=== PATIENT | female | born 2005 | race Two or more races ===

== ENCOUNTER 2024-06-24 18:13 | Emergency (ER) | payer MEDICAID, OTHER ==
[~2024-06-24] VITALS: Ht 162.6 cm; Wt 93.1 kg
[2024-06-24 21:30] VITALS: BP 121/65; PULSE 105; RESP 19; TEMP 99.4; O2SAT 97
[2024-06-24] MEDS: ALBUTEROL SULF 2.5 MG/0.5ML(0.5%) NEB SOLN NEB ONE (21:52)
[2024-06-24] MEDS: IPRATROPIUM BROM 0.5 MG/2.5ML INH SOL NEB ONE (21:52)
[2024-06-24] MEDS: DexAMETHasone SOD PHOS 10MG/1ML VIAL INJ IM ONE (21:54)
--- NOTE | 2024-06-24 21:55 | DVH ---
EXAM: XY CHEST TWO VIEWS ROUTINE TECHNIQUE: Two radiographic views of the chest CLINICAL HISTORY: COUGH/FEVERS COMPARISON: None Findings/Impression: Frontal and lateral chest radiographs demonstrate no acute osseous or superficial soft tissue abnorma lities. The trachea is midline. The cardiac silhouette and mediastinum are within normal limits. No pneumothorax, pleural effusions, or consolidations.
--- NOTE | 2024-06-24 22:07 | ED.PDOC ---
SOB-HPI HPI Comments 18-year-old female presents to the ED with chief complaint of sob, cough, headache. Symptoms reportedly began last night after possible exposure to mold at work. Patient denies difficulty breathing, chest pain, nausea, vomiting or diarrhea. Reports no recent travel or ill contacts. 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 History Family History Family History: Reviewed,noncontributory to illness Social History Smoker: Non-Smoker Alcohol: Denies ETOH Use Drugs: Denies Drug Use Constitutional: denies: chills, diaphoresis, fatigue, fever, malaise, sweats, weakness, others EENTM: denies: blurred vision, double vision, ear bleeding, ear discharge, ear drainage, ear pain, ear ringing, eye pain, eye redness, hearing loss, mouth pain, mouth swelling, nasal discharge, nose bleeding, nose congestion, nose pain, photophobia, tearing, throat pain, throat swelling, voice changes, others Respiratory: reports: cough, SOB at rest; denies: hemoptysis, orthopnea, shortness of breath, SOB with excertion, stridor, wheezing, others Cardiovascular: denies: chest pain, dizzy spells, diaphoresis, Dyspnea on exertion, edema, irregular heart beat, left arm pain, lightheadedness, palp itations, PND, syncope, others Gastrointestinal: denies: abdomen distended, abdominal pain, blood streaked bowels, constipated, diarrhea, dysphagia, difficulty swallowing, hematemesis, melena, nausea, poor appetite, poor fluid intake, rectal bleeding, rectal pain, vomiting, others Genitourinary: denies: abnormal vagina bleeding, burning, dyspareunia, dysuria, flank pain, frequency, hematuria, incontinence, pain, , vagina discharge, urgency, others Neurological: reports: headache; denies: dizziness, fainting, left sided numbness, left sided weakness, numbness, paresthesia, pre-existing deficit, right sided numbness, right sided weakness, seizure, speech problems, tingling, tremors, weakness, others Musculoskeletal: denies: back pain, gout, joint pain, joint swelling, muscle pain, muscle stiffness, neck pain, others Integumetry: denies: bruises, change in color, change in hair/nails, dryness, laceration, lesions, lumps, rash, wounds, others Allergic/Immunocompromised: denies: Difficulty Healing, Frequent Infections, Hives, Itching, others Hematologic/Lymphatic: denies: anemia, blood clots, easy bleeding, easy bruising, swollen glands, others Endocrine: denies: excessive hunger, excessive sweating, excessive thirst, excessive urination, flushing, intolerance to cold, intolerance to heat, unexplained weight gain, unexplained weight loss, others Psychiatric: denies: anxiety, bipolar disorder, depression, hopeless, panic disorder, schizophrenia, sleepless, suicidal, others Physical Exam General Appearance: No Apparent Distress, Normal HEENT: Normal ENT Inspection, Pharynx Normal, TMs Normal Neck: Full Range of Motion, Non-Tender Respiratory: Chest Non-Tender, No Accessory Muscle Use, No Respiratory Distress, Wheezing (Expiratory and inspiratory) Cardiovascular: No Murmur, Normal Peripheral Pulses, Regular Rate/Rhythm Breast Exam: Deferred Gastrointestinal: Non Tender, Soft Genitalia: Deferred Pelvic: Deferred Rectal: Deferred Extremities: No calf tenderness, Normal capillary refill, Normal inspection, Normal range of motion, Non-tender, No pedal edema Musculoskeletal : Apperance: Normal Neurologic: Alert, marketing and outreach coordinator II-XII nml as Tested, No Motor Deficits, Normal Affect, Normal Mood, No Sensory Deficits Cerebellar Function: Normal Reflexes: Normal Skin: Dry, Normal Color, Warm Lymphatic: No Adenopathy Was a procedure done? Was a procedure done?: No Differential Dx Differential Diagnosis: Asthma, Bronchitis, Pneumonia, Sinusitis, Allergic Rhinitis X-Ray, Labs, Meds, VS Vital Signs Date Time Temp Pulse Resp B/P (MAP) Pulse Ox O2 Delivery O2 Flow Rate FiO2 06/24/24 21:30 105 19 97 Room Air 06/24/24 21:30 99.4 105 19 121/65 (83) 97 99.4 06/24/24 18:46 12 95 Room Air 06/24/24 18:32 99.4 119 18 91/70 (77) 98 Lab Test 06/24/24 21:55 Range/Units Influenza Type A Antigen Negative Negative Influenza Type B Antigen Negative Negative SARS-CoV-2 Antigen (Rapid) Negative NEGATIVE Current Medications Medications (Trade) Dose Ordered Sig/Renee Route Start Time Stop Time Status Last Admin Albuterol (Ventolin Medneb) 2.5 mg ONCE ONCE NEB 06/24/24 21:30 06/24/24 21:31 DC 06/24/24 21:52 Ipratropium [place] (Atrovent Medneb) 0.5 mg ONCE ONCE NEB 06/24/24 21:30 06/24/24 21:31 DC 06/24/24 21:52 Dexamethasone Sodium Phosphate (Decadron Injection) 10 mg ONCE ONCE IM 06/24/24 21:30 06/24/24 21:31 DC 06/24/24 21:54 X-Ray, Labs, Meds, VS Comment Patient given duo neb with good results lung sounds clear and equal bilateral. Chest x-ray shows no acute cardiopulmonary findings. Negative flu and COVID swabs. Likely a common cold. Advised to rest increase p.o. fluids with electrolytes [id number] Tylenol or Motrin as needed for pain and fever. Follow up your PCP as necessary for continued symptoms. Return precautions given patient indicates understanding agrees with discharge plan of care. Time of 1ST Reevaluation: 22:47 Reevaluation 1ST: Improved Patient Education/Counseling: Diagnosis, Treatment, Prognosis, Need For Follow Up Family Education/Counseling: No Family Present Departure 1 Departure Time of Disposition: 22:47 Impression: Primary Impression: Nasopharyngitis acute Disposition: 01 HOME / SELF CARE / HOMELESS Condition: Stable Discharged With: Self Critical Care Note Critical Care Time?: No Stability Stability form required: No Heart Score Heart Score: Heart Score Response (Comments) Value History N/A 0 EKG N/A 0 Age <45 0 Risk Factors N/A 0 Troponin N/A 0 Total 0 NALINI THOMAS Jun 24, 2024 22:07
[2024-06-24 22:34] LABS: COVID19 ANTIGEN SOFIA FIA NEGATIVE (NEGATIVE); Rapid Influenza A Negative (Negative); Rapid Influenza B Negative (Negative)
== END 2024-06-24 23:16 | disposition home or self-care (01) ==
LOC: ER 18:13
DX: J00 Acute nasopharyngitis [common cold] (principal); Z20.822 Contact with and (suspected) exposure to COVID-19
CPT/HCPCS: 36415; 71046; 87426; 87804; 94640; 96372; 99284; J1100

== ENCOUNTER 2024-06-26 16:57 | Inpatient (IN) | payer MEDICAID, OTHER ==
[~2024-06-26] VITALS: Ht 162.6 cm; Wt 97.0 kg
--- NOTE | 2024-06-26 17:10 | ED.PDOC ---
Eye-HPI HPI Comments 18 y/o F presents to the ED for CC of flu-like symptoms. Patient relays, that she has been experiencing flu-like symptoms with associated symptoms of shortness of breath x3days. Patient states, that she went to urgent care for a routine check up following her visit to [facility] ED on (06/24/24);patient sent from urgent care for a further evaluation. Patient comments that symptoms have worsened with no alleviation. Patient denies any past medical history or social history. Patient denies body-aches, loss of taste or smell, headache, or N/V/D. No other symptoms or modifying factors at this time. Time Seen by MD: 17:00 Reviewed Notes: Nurses Notes, Medications, Allergies Information Source: Patient Mode of Arrival: Ambulatory Timing: Days Duration: Since onset Prehospital treatment: None Lids: Normal Conjunctiva: Normal Cornea: Normal Pupils: Normal EOM: Normal Slit lamp exam: Normal Anterior chamber: Normal Mouth: Normal ENT Ear Exam: Normal Nose: Normal Sinuses: Normal Oropharynx: Normal Onset: Spontaneous Throat Exposed to: None History of: None Last Tetanus: Unknown Modifying factors: Nothing Associated signs and symptoms: None Past Medical History PAST MEDICAL HISTORY: Denies Surgical History: Denies all surgeries 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 History Family History Family History: Reviewed,noncontributory to illness Social History Smoker: Non-Smoker Alcohol: Denies ETOH Use Drugs: Denies Drug Use Constitutional: reports: chills, fever; denies: diaphoresis, fatigue, malaise, sweats, weakness, others EENTM: denies: blurred vision, double vision, ear bleeding, ear discharge, ear drainage, ear pain, ear ringing, eye pain, eye redness, hearing loss, mouth pain, mouth swelling, nasal discharge, nose bleeding, nose congestion, nose pain, photophobia, tearing, throat pain, throat swelling, voice changes, others Respiratory: reports: cough, shortness of breath; denies: hemoptysis, orthopnea, SOB at rest, SOB with excertion, stridor, wheezing, others Cardiovascular: denies: chest pain, dizzy spells, diaphoresis, Dyspnea on exertion, edema, irregular heart beat, left arm pain, lightheadedness, palpita tions, PND, syncope, others Gastrointestinal: denies: abdomen distended, abdominal pain, blood streaked katherine wels, constipated, diarrhea, dysphagia, difficulty swallowing, hematemesis, melena, nausea, poor appetite, poor fluid intake, rectal bleeding, rectal pain, vomiting, others Genitourinary: denies: abnormal vagina bleeding, burning, dyspareunia, dysuria, flank pain, frequency, hematuria, incontinence, pain, , vagina discharge, urgency, others Neurological: denies: dizziness, fainting, headache, left sided numbness, left sided weakness, numbness, paresthesia, pre-existing deficit, right sided numbness, right sided weakness, seizure, speech problems, tingling, tremors, weakness, others Musculoskeletal: denies: back pain, gout, joint pain, joint swelling, muscle pain, muscle stiffness, neck pain, others Integumetry: denies: bruises, change in color, change in hair/nails, dryness, laceration, lesions, lumps, rash, wounds, others Allergic/Immunocompromised: denies: Difficulty Healing, Frequent Infections, Hives, Itching, others Hematologic/Lymphatic: denies: anemia, blood clots, easy bleeding, easy bruis ing, swollen glands, others Endocrine: denies: excessive hunger, excessive sweating, excessive thirst, exc essive urination, flushing, intolerance to cold, intolerance to heat, unexplained weight gain, unexplained weight loss, others Psychiatric: denies: anxiety, bipolar disorder, depression, hopeless, panic disorder, schizophrenia, sleepless, suicidal, others All Other Systems: Reviewed and Negative Physical Exam General Appearance: Moderate Distress HEENT: Normal ENT Inspection, Pharynx Normal, TMs Normal Neck: Full Range of Motion, Non-Tender, Normal, Normal Inspection Respiratory: Chest Non-Tender, Decreased Breath Sounds, No Accessory Muscle Use, Normal Breath Sounds, Respiratory Distress Cardiovascular: No Edema, No JVD, No Murmur, No Gallop, Tachycardia Breast Exam: Deferred Gastrointestinal: No Organomegaly, Non Tender, No Pulsatile Mass, Normal Bowel Sounds, Soft Genitalia: Deferred Pelvic: Deferred Rectal: Deferred Extremities: No calf tenderness, Normal capillary refill, Normal inspection, Normal range of motion, Non-tender, No pedal edema Musculoskeletal : Apperance: Normal Neurologic: Alert, casey saw operator II-XII nml as Tested, No Motor Deficits, Normal Affect, Normal Mood, No Sensory Deficits Cerebellar Function: Normal Reflexes: Normal Skin: Dry, Normal Color, Warm Lymphatic: No Adenopathy Was a procedure done? Was a procedure done?: No EENT DIFF Eye: N/A Sore Throat: Epiglottitis, Pharyngitis, Streptococcal, Viral Pharyngitis, URI X-Ray, Labs, Meds, VS Vital Signs Date Time Temp Pulse Resp B/P (MAP) Pulse Ox O2 Delivery O2 Flow Rate FiO2 06/26/24 18:15 98.4 06/26/24 17:31 20 98 Room Air* 0 21 06/26/24 17:31 101.9 06/26/24 17:23 20 98 Room Air* 0 21 06/26/24 17:12 101.9 136 20 124/86 (99) 98 Lab Test 06/26/24 19:10 06/26/24 17:01 Range/Units White Blood Count 9.3 4.4-10.8 10^3/uL Red Blood Count 5.03 4.0-5.20 10^6/uL Hemoglobin 13.4 12.2-16.2 g/dL Hematocrit 40.8 36.0-46.0 % Mean Corpuscular Volume 81.0 80.0-100.0 fL Mean Corpuscular Hemoglobin 26.7 L 28.0-32.0 pg Mean Corpuscular Hemoglobin Concent 33.0 32.0-36.0 g/dL Red Cell Distribution Width 14.4 H 11.8-14.3 % Platelet Count 296 140-450 10^3/uL Mean Platelet Volume 8.3 6.9-10.8 fL Neutrophils (%) (Auto) 76.1 37.0-80.0 % Lymphocytes (%) (Auto) 15.3 10.0-50.0 % Monocytes (%) (Auto) 8.1 0.0-12.0 % Eosinophils (%) (Auto) 0.2 0.0-7.0 % Basophils (%) (Auto) 0.3 0.0-2.0 % Neutrophils # (Auto) 7.1 1.6-8.6 10 ^3/uL Lymphocytes # (Auto) 1.4 0.4-5.4 10 ^3/uL Monocytes # (Auto) 0.7 0-1.3 10 ^3/uL Eosinophils # (Auto) 0 0-0.8 10 ^3/uL Basophils # (Auto) 0 0-0.2 10 ^3/uL Nucleated Red Blood Cells 0.0 % Sodium Level Pending Potassium Level Pending Chloride Level Pending Carbon Dioxide Level Pending Anion Gap Pending Blood Urea Nitrogen Pending Creatinine Pending Glomerular Filtration Rate Calc Pending BUN/Creatinine Ratio Pending Serum Glucose Pending Lactic Acid Level Pending Calcium Level Pending Influenza Type A Antigen Positive Negative Influenza Type B Antigen Negative Negative SARS-CoV-2 Antigen (Rapid) Negative NEGATIVE Current Medications Medications (Trade) Dose Ordered Sig/Renee Route Start Time Stop Time Status Last Admin Sodium Chloride 500 ml @ 500 mls/hr Q1H ONCE IV 06/26/24 17:15 06/26/24 18:14 DC 06/26/24 17:33 Acetaminophen (Tylenol Tablet) 1,000 mg ONCE ONCE PO 06/26/24 17:15 06/26/24 17:16 DC 06/26/24 17:31 CXR: FINDINGS: Lines and Tubes: None Lungs: No focal consolidation. Pleura: No effusion. No pneumothorax. Cardiomediastinal contours: Unremarkable Bones: No acute osseous abnormality. IMPRESSION: 1. No acute cardiopulmonary disease. 2. No significant change from 06/24/2024. ATED BY: ARCHIE KC Jr., DO DICTATED DATE/TIME: 06/26/241719 SIGNED BY: ARCHIE KC Jr., DO SIGNED DATE/TIME: 06/26/241719 CC: The patient is influenza a is positive The influenza B and COVID test are negative The CBC is within normal limits The chemistry panel is pending and will be follow up by the hospitalist The patient was being admitted at this time The patient did receive acetaminophen 1000 mg p.o. for the fever The patient was also received normal saline to address the tachycardia The patient was being admitted at this time Images Reviewed?: Images reviewed and evaluated by me Time of 1ST Reevaluation: 17:30 Reevaluation 1ST: Unchanged Patient Education/Counseling: Diagnosis, Treatment, Prognosis Family Education/Counseling: No Family Present Departure 1 Departure Time of Disposition: 19:50 Impression: Primary Impression: Influenza A Additional Impressions: Fever Qualified Codes: R50.9 - Fever, unspecified Acute respiratory distress Disposition: ADMITTED INPATIENT Admit to: Med Surg Condition: Fair Critical Care Note Critical Care Time?: No Stability Stability form required: No Heart Score Heart Score: Heart Score Response (Comments) Value History N/A 0 EKG N/A 0 Age N/A 0 Risk Factors N/A 0 Troponin N/A 0 Total 0 I personally scribed for BETH MARTINEZ MD ([email or web address]) on 06/26/24 at 17:10. Electronically submitted by Emily Hoyt ([email or web address]). I personally scribed for BETH MARTINEZ MD ([email or web address]) on 06/26/24 at 17:49. Electronically submitted by Emily Hoyt ([email or web address]). BETH MARTINEZ MD Jun 26, 2024 17:10
--- NOTE | 2024-06-26 17:23 | DVH ---
XY CHEST TWO VIEWS ROUTINE CLINICAL HISTORY: cough COMPARISON: XY CHEST TWO VIEWS ROUTINE on DOS: 06/24/24 TECHNIQUE: Frontal and lateral view of the chest was obtained FINDINGS: Lines and Tubes: None Lungs: No focal consolidation. Pleura: No effusion. No pneumothorax. Cardiomediastinal contours: Unremarkable Bones: No acute osseous abnormality. IMPRESSION: 1. No acute cardiopulmonary disease. 2. No significant change from 06/24/2024.
[2024-06-26 17:31] VITALS: RESP 20; O2SAT 98
[2024-06-26] MEDS: ACETAMINOPHEN 325 MG TAB PO ONE (17:31)
[2024-06-26] MEDS: SODIUM CHLORIDE 0.9% 500 ML IV ONE (17:33)
[2024-06-26 18:37] LABS: COVID19 ANTIGEN SOFIA FIA NEGATIVE (NEGATIVE); Rapid Influenza A Positive (Negative); Rapid Influenza B Negative (Negative)
[2024-06-26 19:34] LABS: Basophils # (auto) 0 10 ^3/uL (0-0.2); Basophils % (auto) 0.3 % (0.0-2.0); Eosinophils # (auto) 0 10 ^3/uL (0-0.8); Eosinophils % (auto) 0.2 % (0.0-7.0); Hematocrit 40.8 % (36.0-46.0); Hemoglobin 13.4 g/dL (12.2-16.2); Lymphocytes # (auto) 1.4 10 ^3/uL (0.4-5.4); Lymphocytes % (auto) 15.3 % (10.0-50.0); Mean Corpuscular Hemoglobin 26.7 pg (28.0-32.0); Monocytes # (auto) 0.7 10 ^3/uL (0-1.3); Monocytes % (auto) 8.1 % (0.0-12.0); Neutrophils # (auto) 7.1 10 ^3/uL (1.6-8.6); Neutrophils % (auto) 76.1 % (37.0-80.0); Platelet Count (auto) 296 10^3/uL (140-450); Red Blood Cells 5.03 10^6/uL (4.0-5.20); Red Cell Distribution Width 14.4 % (11.8-14.3); White Blood Cell 9.3 10^3/uL (4.4-10.8)
[2024-06-26 19:45] LABS: Chloride 106 mmol/L (98-107); Sodium 137 mmol/L (136-145)
[2024-06-26 19:46] LABS: Anion Gap 12 (5-15); Calcium 9.5 mg/dL (8.7-10.4)
[2024-06-26 19:51] LABS: BUN/Creatinine Ratio 8.4 (10.0-20.0); Glucose 82 mg/dL (74-106)
[2024-06-26 19:58] LABS: Blood Urea Nitrogen 7 mg/dL (9-23); Carbon Dioxide 19 mmol/L (20-31); Potassium 3.2 mmol/L (3.5-5.1)
[2024-06-26] MEDS: cefTRIAXone 1GM/50ML D5W 50 ML IV ONE (22:00)
[2024-06-26] MEDS: SODIUM CHLORIDE 0.9% 1,000 ML IV ONE (22:00)
[2024-06-26] MEDS ORDERED: ACETAMINOPHEN 325 MG TAB PO PRN (22:00)
[2024-06-26] MEDS: ALBUTEROL SULF 2.5 MG/0.5ML(0.5%) NEB SOLN ONE (22:17)
--- NOTE | 2024-06-26 22:17 | DVHHPRES ---
History of Present Illness Resident Creating Document: DIANE ALONZO RESIDENT History of Present Illness Patient is a 18-year-old female with no past medical history who came in due to sore throat, shaking chills, body aches and generalized weakness that has been ongoing since Tuesday06/24/2024. According to the patient, she came to the ER on 06/24/2024 and was sent home, but her symptoms progressively got worse where she could not get out of shower with loss of appetite, dyspnea and shortness of breath. Patient notes sick contacts her sister, denies any travel history, denies influenza shot. In the ER patient was noted to have a temperature of 101.9, pulse 136. On review of systems patient is complaining of fatigue, fever, chills, dry cough, dyspnea, shortness of breath, palpitations and dysuria. Patient tested positive for influenza A. Past Medical History Denies Past Surgical History Denies Smoke: No ALCOHOL: none Drugs: None Lives: with Family Review of Systems Constitutional: Yes: Fever, Chills, Weakness, Malaise; No: Sweats, Other Eyes: No: Pain, Vision change, Conjunctivae inflammation, Eyelid inflammation, Other, Redness ENT: Nose discharge, Nose congestion, Throat pain; No: Ear pain, Ear discharge, Nose pain, Mouth pain, Mouth swelling, Throat swelling, Other Respiratory: Cough, Dry, SOB with excertion, Wheezing; No: Shortness of breath, Hemoptysis, Pleuritic Pain, Sputum, Wheezing, Other Cardiovascular: Palpitations; No: Chest Pain, Orthopnea, Paroxysmal Noc. Dyspnea, Edema, Lt Headedness, Other Gastrointestinal: No: Nausea, Vomiting, Abdominal Pain, Diarrhea, Constipation, Melena, Hematochezia, Other Genitourinary: Dysuria; No Frequency, No Incontinence, No Hematuria, No Retention, No Other Musculoskeletal: No: other, neck pain, shoulder pain, arm pain, back pain, hand pain, leg pain, foot pain Skin: No: Rash, Lesions, Jaundice, Bruising, Other Neurological: No: Weakness, Numbness, Incoordination, Change in speech, Confusion, Seizures, Other Allergies: Coded Allergies: NO KNOWN ALLERGIES (Unverified , 06/26/24) Medications Current Medications Medications Dose Ordered Sig/Renee Route Start Time Stop Time Status Last Admin Dose Admin Acetaminophen 650 mg Q6HP PRN PO 06/26/24 22:00 UNV Exam Vital Signs Vital Signs Date Time Temp Pulse Resp B/P (MAP) Pulse Ox O2 Delivery O2 Flow Rate FiO2 06/26/24 18:15 98.4 06/26/24 17:31 20 98 Room Air* 0 21 06/26/24 17:12 136 124/86 (99) General Appearance: Alert, Oriented X3, Cooperative, mild distress HEENT: Atraumatic, PERRLA, EOMI Respiratory: Other (Scattered bilateral wheezes) Cardiovascular: Regular rate, Normal S1, Normal S2, No murmurs Abdominal: Normal bowel sounds, Soft, Other (Suprapubic tenderness to palpation) Extremities: No clubbing, No cyanosis, No edema, Normal pulses, No tenderness/swelling Skin: No rashes, No breakdown, No significant lesion Neuro: Normal gait, Normal speech, Strength at 5/5 X4 ext, Normal tone, Sensation intact Psych/Mental Status: Mental status NL, Mood NL Labs/Xrays Labs Test 06/26/24 19:10 06/26/24 17:01 Range/Units White Blood Count 9.3 4.4-10.8 10^3/uL Red Blood Count 5.03 4.0-5.20 10^6/uL Hemoglobin 13.4 12.2-16.2 g/dL Hematocrit 40.8 36.0-46.0 % Mean Corpuscular Volume 81.0 80.0-100.0 fL Mean Corpuscular Hemoglobin 26.7 L 28.0-32.0 pg Mean Corpuscular Hemoglobin Concent 33.0 32.0-36.0 g/dL Red Cell Distribution Width 14.4 H 11.8-14.3 % Platelet Count 296 140-450 10^3/uL Mean Platelet Volume 8.3 6.9-10.8 fL Neutrophils (%) (Auto) 76.1 37.0-80.0 % Lymphocytes (%) (Auto) 15.3 10.0-50.0 % Monocytes (%) (Auto) 8.1 0.0-12.0 % Eosinophils (%) (Auto) 0.2 0.0-7.0 % Basophils (%) (Auto) 0.3 0.0-2.0 % Neutrophils # (Auto) 7.1 1.6-8.6 10 ^3/uL Lymphocytes # (Auto) 1.4 0.4-5.4 10 ^3/uL Monocytes # (Auto) 0.7 0-1.3 10 ^3/uL Eosinophils # (Auto) 0 0-0.8 10 ^3/uL Basophils # (Auto) 0 0-0.2 10 ^3/uL Nucleated Red Blood Cells 0.0 % Sodium Level 137 136-145 mmol/L Potassium Level 3.2 L 3.5-5.1 mmol/L Chloride Level 106 98-107 mmol/L Carbon Dioxide Level 19 L 20-31 mmol/L Anion Gap 12 5-15 Blood Urea Nitrogen 7 L 9-23 mg/dL Creatinine 0.83 0.550-1.02 mg/dL Glomerular Filtration Rate Calc 103 >90 mL/min BUN/Creatinine Ratio 8.4 L 10.0-20.0 Serum Glucose 82 74-106 mg/dL Lactic Acid Level 1.5 0.4-2.0 mmol/L Calcium Level 9.5 8.7-10.4 mg/dL Influenza Type A Antigen Positive Negative Influenza Type B Antigen Negative Negative SARS-CoV-2 Antigen (Rapid) Negative NEGATIVE Assessment/Plan Assessment/Plan Influenza A positive with possible superimposed bacterial infection Probable sepsis due to above - CXR: No acute cardiopulmonary disease. No significant change from 06/24/2024. - IV NS 1L bolus - IV ceftriaxone, azithromycin po 500mg - Acetaminphen 625mg as needed for fever - ipratropium and albuterol med nebs - ordered respiratory cultures, MRSA screen Acute complicated UTI - IV ceftriaxone Hypokalemia - repleted Goals of care: Full code, discussed for >16 minutes on 06/26/2024 Plan discussed with patient Plan discussed with Dr. Dubois Plan discussed with: Patient, Other (Mother, RN) My Orders Orders - DIANE ALONZO RESIDENT Procedure Category Date Status Time Admit ADMIT 06/26/24 Transmitted 21:54 Code Status CODE 06/26/24 Transmitted 21:54 Vital Signs CHRISTIAN 06/26/24 In Process 21:54 Regular Diet DIET 06/27/24 Transmitted Breakfast Acetaminophen Tablet PHA 06/26/24 Transmitted (Tylenol Tablet) 22:00 Notify Of Changes CHRISTIAN 06/26/24 In Process From Base 21:54 Advance Directive CHRISTIAN 06/26/24 In Process 21:54 Urinalysis LAB 06/26/24 Transmitted 21:54 Patient Condition ORDERS 06/26/24 Transmitted 21:54 Allergies CHRISTIAN 06/26/24 In Process 21:54 Drug Screen LAB 06/26/24 Transmitted 21:54 Notify Of Changes CHRISTIAN 06/26/24 In Process From Base 21:54 Lipase LAB 06/26/24 Transmitted 21:54 Beta Hcg, Quantitative LAB 06/26/24 Transmitted 21:54 Chlamydia/Gc LAB 06/26/24 Transmitted Amplification 21:54 Mrsa Screen ALEJANDRO 06/26/24 Transmitted 21:54 Respiratory Culture ALEJANDRO 06/26/24 Transmitted W/ Gs 21:54 Ipratropium Medneb PHA 06/26/24 Transmitted (Atrovent Medneb) 22:00 Albuterol Medneb PHA 06/26/24 Transmitted (Ventolin Medneb) 22:00 Potassium Effervesent PHA 06/26/24 Transmitted Tab (Klor-Con/Ef) 22:00 NS PHA 06/26/24 Transmitted 22:00 Ceftriaxone Ivpb PHA 06/26/24 Transmitted Rocephin 22:00 Azithromycin Tablet PHA 06/26/24 Transmitted (Zithromax Tablet) 22:00 Azithromycin Tablet PHA 06/27/24 Transmitted (Zithromax Tablet) 10:00 Date of Service: Jun 26, 2024 Billing Provider: DEVONTE DUBOIS MD Common Visit Codes: [id number] INP/OBS CARE (HIGH) DIANE ALONZO RESIDENT Jun 26, 2024 22:17 DEVONTE DUBOIS MD Jun 27, 2024 18:13
[2024-06-26 23:00] VITALS: PULSE 94; RESP 20; O2SAT 94
[2024-06-26 23:08] VITALS: PULSE 98; RESP 20; O2SAT 90
[2024-06-26] MEDS: POTASSIUM EFFERVESENT TAB 25 MEQ PO ONE (23:21)
[2024-06-26] MEDS: AZITHROMYCIN 250 MG TAB PO ONE (23:21)
[2024-06-26] MEDS: IPRATROPIUM BROM 0.5 MG/2.5ML INH SOL NEB SCH (23:33)
[2024-06-26] MEDS: ALBUTEROL SULF 2.5 MG/0.5ML(0.5%) NEB SOLN NEB SCH (23:33)
[2024-06-26 23:41] VITALS: BP 124/86; PULSE 98; RESP 20; TEMP 101.9; O2SAT 94
[2024-06-27] VITALS (12 sets, daily range): BP systolic 115–124; BP diastolic 65–79; PULSE 75–111; RESP 14–20; TEMP 97.1–98.9; O2SAT 94–100
[2024-06-27 00:01] LABS: Urine Bacteria FEW /hpf (None Seen); Urine Blood 2+ /uL (Negative); Urine Clarity Clear (Clear); Urine Color Light-Yellow (Yellow); Urine Protein, UAD Negative (Negative); Urine Specific Gravity 1.009 (1.001-1.035); Urine Squamous Epithelial Cell FEW /hpf (<5); Urine Urobilinogen Normal (Negative); Urine WBC 5 /HPF (0-5)
[2024-06-27 00:14] LABS: Amphetamine Screen, Urine Neg (NEGATIVE); Barbiturate Scree,Urine Neg (NEGATIVE); Benzodiazephine Screen, Urine Neg (NEGATIVE); Cannabinoid Screen, Urine Neg (NEGATIVE); Cocaine Screen, Urine Neg (NEGATIVE); Opiate Scree,Urine Neg (NEGATIVE); Phencyclidine Screen, Urine Neg (NEGATIVE)
[2024-06-27 08:30] LABS: Chloride 106 mmol/L (98-107); Potassium 3.6 mmol/L (3.5-5.1); Sodium 139 mmol/L (136-145)
[2024-06-27 08:31] LABS: Anion Gap 8 (5-15); Carbon Dioxide 25 mmol/L (20-31)
[2024-06-27 08:32] LABS: Calcium 9.6 mg/dL (8.7-10.4)
[2024-06-27 08:36] LABS: Glucose 86 mg/dL (74-106)
[2024-06-27 08:38] LABS: Blood Urea Nitrogen 8 mg/dL (9-23)
[2024-06-27] MEDS ORDERED: OSELTAMIVIR 75 MG CAP PO SCH (10:00)
[2024-06-27] MEDS: OSELTAMIVIR 75 MG CAP PO SCH (10:08)
[2024-06-27] MEDS: cefTRIAXone 1GM/50ML D5W 50 ML IV SCH (10:08)
[2024-06-27] MEDS: AZITHROMYCIN 250 MG TAB PO SCH (10:08)
[2024-06-27] MEDS: LACTATED RINGER'S 1,000 ML IV SCH (12:50)
--- NOTE | 2024-06-27 14:55 | DVHPNRES ---
Progress Note Date Seen: Jun 27, 2024 Resident Creating Document: DANNY NARVAEZ RESIDENT Medical Necessity Reason Pt with a Central, PICC or Fol: No Subjective Review of Systems Patient is a 18-year-old female with no past medical history who came in due to sore throat, shaking chills, body aches and generalized weakness that has been ongoing since Tuesday06/24/2024. According to the patient, she came to the ER on 06/24/2024 and was sent home, but her symptoms progressively got worse with loss of appetite, dyspnea and shortness of breath that prompted this visit. Patient was seen and examined on the bedside. she is alert oriented x3. Complains of cold, chills, nasal congestion and generalized body ache. No other active complaints. Constitutional: Chills, Malaise No Fever,Sweats, Weakness, Other Eyes: No: Pain, Vision change, Conjunctivae inflammation, Eyelid inflammation, Other, Redness ENT: Nose congestion No: Ear pain, Ear discharge, Nose pain, Nose discharge, Mouth pain, Mouth swelling, Throat pain, Throat swelling, Other Respiratory: Shortness of breath, improving No: Cough, Dry,Wheezing, Hemoptysis, Pleuritic Pain, Sputum, Wheezing, Other Cardiovascular: No: Chest Pain, Palpitations, Orthopnea, Paroxysmal Noc. Dyspnea, Edema, Lt Headedness, Other Gastrointestinal: No: Nausea, Vomiting, Abdominal Pain, Diarrhea, Constipation, Melena, Hematochezia, Other Musculoskeletal: No: other, neck pain, shoulder pain, arm pain, back pain, hand pain, leg pain, foot pain Neurological:; No: Weakness, Numbness, Incoordination, Change in speech, Confusion, Seizures Objective vital signs Vital Sign Date Time Temp Pulse Resp B/P (MAP) Pulse Ox O2 Delivery O2 Flow Rate FiO2 06/27/24 13:44 111 16 99 06/27/24 13:34 Room Air* 0 21 06/27/24 13:00 121/74 (90) 06/27/24 09:46 99.8 99.8 Total Intake and Output 06/26/24 06/26/24 06/27/24 15:00 23:00 07:00 Intake Total 500 ml 1050 ml Balance 500 ml 1050 ml medications Current Medications Medications Dose Ordered Sig/Renee Route Start Time Stop Time Status Last Admin Dose Admin Acetaminophen 650 mg Q6HP PRN PO 06/26/24 22:00 Ipratropium Gamerco 0.5 mg Q8HR NEB 06/26/24 22:00 06/27/24 13:34 0.5 MG Albuterol 2.5 mg Q8HR NEB 06/26/24 22:00 06/27/24 13:34 2.5 MG Azithromycin 500 mg DAILY PO 06/27/24 10:00 06/27/24 10:08 500 MG Ceftriaxone Sodium 50 ml @ 100 mls/hr DAILY@09 IV 06/27/24 09:00 06/27/24 10:08 100 MLS/HR Oseltamivir Phosphate 75 mg Q12HR PO 06/27/24 10:00 07/02/24 09:59 06/27/24 10:08 75 MG Lactated Ringer's 1,000 ml @ 125 mls/hr Q8H IV 06/27/24 10:00 06/27/24 12:50 125 MLS/HR Examination Physical examination: General Appearance: Alert, Oriented X3, Cooperative, No acute distress HEENT: Atraumatic, PERRLA, EOMI, Mucous membrane moist/pink Respiratory: Clear to auscultation, Normal air movement Cardiovascular: Regular rate, Normal S1, Normal S2, No murmurs, no chest wall tenderness Abdominal: Normal bowel sounds, Soft, No tenderness, No hepatospenomegaly, No masses Extremities: No clubbing, No cyanosis, No edema, Normal pulses, No tenderness/swelling Skin: No rashes, No breakdown, No significant lesion Neuro: Normal gait, Normal speech, Strength at 5/5 X4 ext, Normal tone, Sensation intact, intact cranial nerves. Psych/Mental Status: Mental status NL, Mood NL laboratory and microbiology Laboratory Tests 06/27/24 05:40 06/26/24 19:10 Test 06/27/24 05:40 Range/Units Serum Glucose 86 74-106 mg/dL Labs and/or images reviewed: Labs reviewed by me, Image(s) reviewed by me Problem List/Assessment/Plan Problem List/Assessment/Plan Assessment and plan: # Influenza A positive with possible superimposed community acquired gram positive/gram negative/ Viral pneumonia # SIRS due to above # Ruled out sepsis - CXR: No acute cardiopulmonary disease. No significant change from 06/24/2024. - IV NS 1L bolus - IV ceftriaxone, azithromycin po 500mg - Acetaminphen 625mg as needed for fever - Tamiflu 75 mg b.i.d - ipratropium and albuterol med nebs # Possible acute cystitis - Ordered urine bacterial culture - IV ceftriaxone 1 gm daily # Possible acute pancreatitis - Lipase is mildly elevated - Full liquid diet - IV Ringer's lactate 125 mL/hour Goal of care discussed with the patient for more than 20 minutes full code Plan discussed with Dr. Alvarez Plan discussed with: Patient, Other My Orders My Orders Orders - DANNY NARVAEZ Procedure Category Date Status Time Lactated Ringer's PHA 06/27/24 In Process 10:00 Full Liq Diet DIET 06/27/24 Transmitted Lunch Date of Service: Jun 27, 2024 Billing Provider: VIVIANA SMALL MD Common Visit Codes: [id number] INP/OBS CARE(HIGH) DANNY NARVAEZ RESIDENT Jun 27, 2024 14:55 VIVIANA SMALL MD Jun 28, 2024 13:08
[2024-06-28] VITALS (7 sets, daily range): BP systolic 112–129; BP diastolic 62–78; PULSE 83–113; RESP 16–18; TEMP 97.5–98.7; O2SAT 94–98
[2024-06-28 06:18] LABS: Basophils # (auto) 0 10 ^3/uL (0-0.2); Basophils % (auto) 0.4 % (0.0-2.0); Eosinophils # (auto) 0 10 ^3/uL (0-0.8); Lymphocytes # (auto) 2.8 10 ^3/uL (0.4-5.4); Monocytes # (auto) 0.5 10 ^3/uL (0-1.3)
[2024-06-28 06:20] LABS: Eosinophils % (auto) 0.3 % (0.0-7.0); Hematocrit 43.8 % (36.0-46.0); Hemoglobin 14.2 g/dL (12.2-16.2); Lymphocytes % (auto) 51.8 % (10.0-50.0); Mean Corpuscular Hemoglobin 26.5 pg (28.0-32.0); Mean Corpuscular Hgb Conc. 32.5 g/dL (32.0-36.0); Mean Corpuscular Volume 81.6 fL (80.0-100.0); Monocytes % (auto) 9.8 % (0.0-12.0); Neutrophils # (auto) 2.1 10 ^3/uL (1.6-8.6); Neutrophils % (auto) 37.7 % (37.0-80.0); Nucleated Red Blood Cells % 0.3 %; Platelet Count (auto) 318 10^3/uL (140-450); Red Blood Cells 5.36 10^6/uL (4.0-5.20); Red Cell Distribution Width 14.6 % (11.8-14.3); White Blood Cell 5.5 10^3/uL (4.4-10.8)
[2024-06-28 06:36] LABS: Alanine Aminotransferase 29 U/L (7-40); Albumin 4.6 g/dL (3.2-4.8); Alkaline Phosphatase 83 U/L (46-116); Anion Gap 8 (5-15); Aspartate Aminotransferase 25 U/L (13-40); Calcium 9.8 mg/dL (8.7-10.4); Carbon Dioxide 23 mmol/L (20-31); Chloride 107 mmol/L (98-107); Glucose 84 mg/dL (74-106); Potassium 3.9 mmol/L (3.5-5.1); Sodium 138 mmol/L (136-145)
[2024-06-28 06:37] LABS: Bilirubin, Total 0.2 mg/dL (0.2-1.0); Blood Urea Nitrogen < 5 mg/dL (9-23); Total Protein 7.7 g/dL (5.7-8.2)
[2024-06-28 09:22] LABS: Hepatitis B Surface Antigen Negative (Negative); Hepatitis C Antibody Negative (Negative)
[2024-06-28] MEDS ORDERED: AZIT500T66 PO (10:08)
[2024-06-28] MEDS ORDERED: TAMIFLU PO (10:08)
--- NOTE | 2024-06-28 10:09 | DVHDSRES ---
Discharge Summary Date of Admission Resident Creating Document: DANNY NARVAEZ RESIDENT Jun 26, 2024 at 21:54 Date of Discharge: Jun 28, 2024 Admitting Diagnosis Influenza A positive with possible superimposed community acquired gram positive/gram negative/ Viral pneumonia Wounds: No wound was present Labs/Diagnostic Data: Laboratory Results Test 06/28/24 05:00 06/27/24 05:40 06/26/24 23:25 06/26/24 19:10 White Blood Count 5.5 10^3/uL (4.4-10.8) Red Blood Count 5.36 10^6/uL (4.0-5.20) Hemoglobin 14.2 g/dL (12.2-16.2) Hematocrit 43.8 % (36.0-46.0) Mean Corpuscular Volume 81.6 fL (80.0-100.0) Mean Corpuscular Hemoglobin 26.5 pg (28.0-32.0) Mean Corpuscular Hemoglobin Concent 32.5 g/dL (32.0-36.0) Red Cell Distribution Width 14.6 % (11.8-14.3) Platelet Count 318 10^3/uL (140-450) Mean Platelet Volume 8.1 fL (6.9-10.8) Neutrophils (%) (Auto) 37.7 % (37.0-80.0) Lymphocytes (%) (Auto) 51.8 % (10.0-50.0) Monocytes (%) (Auto) 9.8 % (0.0-12.0) Eosinophils (%) (Auto) 0.3 % (0.0-7.0) Basophils (%) (Auto) 0.4 % (0.0-2.0) Neutrophils # (Auto) 2.1 10 ^3/uL (1.6-8.6) Lymphocytes # (Auto) 2.8 10 ^3/uL (0.4-5.4) Monocytes # (Auto) 0.5 10 ^3/uL (0-1.3) Eosinophils # (Auto) 0 10 ^3/uL (0-0.8) Basophils # (Auto) 0 10 ^3/uL (0-0.2) Nucleated Red Blood Cells 0.3 % Sodium Level 138 mmol/L (136-145) Potassium Level 3.9 mmol/L (3.5-5.1) Chloride Level 107 mmol/L (98-107) Carbon Dioxide Level 23 mmol/L (20-31) Anion Gap 8 (5-15) Blood Urea Nitrogen < 5 mg/dL (9-23) Creatinine 0.71 mg/dL (0.550-1.02) Glomerular Filtration Rate Calc 125 mL/min (>90) BUN/Creatinine Ratio 7.0 (10.0-20.0) Serum Glucose 84 mg/dL (74-106) Calcium Level 9.8 mg/dL (8.7-10.4) Total Bilirubin 0.2 mg/dL (0.2-1.0) Aspartate Amino Transferase (AST) 25 U/L (13-40) Alanine Aminotransferase (ALT) 29 U/L (7-40) Alkaline Phosphatase 83 U/L (46-116) Total Protein 7.7 g/dL (5.7-8.2) Albumin 4.6 g/dL (3.2-4.8) Lipase 56 U/L (12-53) Thyroid Stimulating Hormone (TSH) 2.28 uIU/mL (0.55-4.78) Hepatitis B Surface Antigen Negative (Negative) Hepatitis C Antibody Negative (Negative) Urine Color Light-yellow (Yellow) Urine Clarity Clear (Clear) Urine pH 6.0 (5.0-9.0) Urine Specific [place] 1.009 (1.001-1.035) Urine Protein Negative (Negative) Urine Ketones 1+ (Negative) Urine Blood 2+ /uL (Negative) Urine Nitrite Negative (Negative) Urine Bilirubin Negative (Negative) Urine Urobilinogen Normal mg/dL (Negative) Urine Leukocyte Esterase 1+ /uL (Negative) Urine RBC 68 /hpf (0 - 4) Urine Microscopic WBC 5 /HPF (0-5) Urine Squamous Epithelial Cells Few /hpf (<5) Urine Bacteria Few /hpf (None Seen) Urine Glucose Normal mg/dL (Normal) Urine Opiates Screen Neg (NEGATIVE) Urine Fentanyl Screen Neg (NEGATIVE) Urine Barbiturates Screen Neg (NEGATIVE) Urine Phencyclidine Screen Neg (NEGATIVE) Urine Amphetamines Screen Neg (NEGATIVE) Urine Benzodiazepines Screen Neg (NEGATIVE) Urine Cocaine Screen Neg (NEGATIVE) Urine Cannabinoids Screen Neg (NEGATIVE) Lactic Acid Level 1.5 mmol/L (0.4-2.0) Beta HCG, Quantitative 0.3 mIU/mL (1.5-4.2) Test 06/26/24 17:01 Influenza Type A Antigen Positive (Negative) Influenza Type B Antigen Negative (Negative) SARS-CoV-2 Antigen (Rapid) Negative (NEGATIVE) Other Laboratory Tests 06/28/24 05:00 Brief Hx & Hospital Course: Patient is a 18-year-old female with no past medical history who came in due to sore throat, shaking chills, body aches and generalized weakness that has been ongoing since Tuesday06/24/2024. According to the patient, she came to the ER on 06/24/2024 and was sent home, but her symptoms progressively got worse with loss of appetite, dyspnea and shortness of breath that prompted this visit. Hospital course: Initially the patient was SIRS positive, elevated temperature and tachycardia and sepsis ruled out. Patient was treated for influenza A with possible superimposed community-acquired Gram-positive / Gram-negative /viral pneumonia with IV ceftriaxone 1 g daily , azithromycin 500 mg p.o. daily and Tamiflu 75 mg b.i.d. Lipase was mildly elevated and the patient was treated with full liquid diet, IV lactated ringer 125 mL/hours. Today morning patient mentioned improvement of symptoms in terms of breathing, nasal congestion and abdominal pain. Discharge plan was discussed with the patient and all questions were answered. Patient is being discharged to home. Discharge diagnosis: # Influenza A positive with possible superimposed community acquired gram positive/gram negative/ Viral pneumonia # SIRS due to above # Ruled out sepsis # Possible acute cystitis # Possible acute pancreatitis Discharge disposition: Home Medications : Azithromycin 500 mg daily for 3 days and Opal flu 75 mg b.i.d. f or 3 days. Follow up : [facility] clinic in 1 week PCP in 1 week Consults/Reason for consult No consultation was done Operations or Procedures XY CHEST TWO VIEWS ROUTINE CLINICAL HISTORY: cough COMPARISON: XY CHEST TWO VIEWS ROUTINE on DOS: 06/24/24 TECHNIQUE: Frontal and lateral view of the chest was obtained FINDINGS: Lines and Tubes: None Lungs: No focal consolidation. Pleura: No effusion. No pneumothorax. Cardiomediastinal contours: Unremarkable Bones: No acute osseous abnormality. IMPRESSION: 1. No acute cardiopulmonary disease. Condition at Discharge: Stable Final Diagnosis/Problems List # Influenza A positive with possible superimposed community acquired gram positive/gram negative/ Viral pneumonia # SIRS due to above # Ruled out sepsis # Possible acute cystitis # Possible acute pancreatitis Discharge Disposition: Home Discharge Instruct/Medications Diet: Regular Activity: No Restrictions, As Tolerated Follow Up/Referral: Follow up with [facility] clinic in 1 week Follow up with PCP in 1 week Medications: Azithromycin 500mg 1 tab daily for 3 days Tamiflu 75 mg 1 tab bid for 3 days Discharge Statement: "Patient was advised to return to the ER or call 911 if any headaches, dizziness, shortness of breath, chest pain, abdominal pain, bleeding, fevers, or worsening of medical condition. Patient was counseled about treatment plan, medications, possible side effects, patientverbalized understanding. All questions were answered to the best of my ability. This discharge took greater then 30 minutes in planning, reviewing documentation, counseling the patient, and discussing with other team members." ASSESSMENT ASSESSMENT Assessment # Influenza A positive with possible superimposed community acquired gram positive/gram negative/ Viral pneumonia # SIRS due to above # Ruled out sepsis # Possible acute cystitis # Possible acute pancreatitis Date of Service: Jun 28, 2024 Billing Provider: VIVIANA SMALL MD Common Visit Codes: 97002-ROM/OBS DISCH DAY >30min DANNY NARVAEZ RESIDENT Jun 28, 2024 10:09 VIVIANA SMALL MD Jul 03, 2024 09:46
[2024-06-28 21:06] LABS: Chlamydia Trachomatis, NAA Negative (Negative); Neisseria gonorrhoeae, NAA Negative (Negative)
== END 2024-06-28 12:08 | disposition home or self-care (01) | DRG 139 ==
LOC: ER 16:57 → OVERFLOW 21:54 → CENTRAL 06-27 14:08
PROVIDERS: ADMIT Student in an Organized Health Care Education/Training Program; ATTEND Student in an Organized Health Care Education/Training Program
DX: J10.08 Influenza due to other identified influenza virus with other specified pneumonia (principal); K85.90 Acute pancreatitis without necrosis or infection, unspecified; R65.10 Systemic inflammatory response syndrome (SIRS) of non-infectious origin without acute organ dysfunction; J15.69 Pneumonia due to other Gram-negative bacteria; N30.00 Acute cystitis without hematuria; Z20.822 Contact with and (suspected) exposure to COVID-19; E87.6 Hypokalemia; J15.9 Unspecified bacterial pneumonia; J12.9 Viral pneumonia, unspecified
CPT/HCPCS: 36415; 71046; 80048; 80053; 80307; 81001; 83605; 83690; 84443; 84702; 85025; 86803; 87040; 87340; 87426; 87804; 94640; 96365; G0378